=== PATIENT | female | born 1960 | race Caucasian/White ===

== ENCOUNTER 2023-06-14 08:38 | Outpatient (OUT) | payer OTHER, SELFPAY ==
[2023-06-14 09:47] LABS: Alanine Aminotransferase 23 U/L (14-59); Albumin Globulin Ratio 1.1; Albumin Level 3.7 g/dL (3.4-5.0); Alkaline Phosphatase 76 U/L (46-116); Anion Gap 8.8; Aspartate Amino Transferase 17 U/L (15-37); BUN Creatinine Ratio 25.4; Bilirubin Total 0.4 mg/dL (0.2-1.0); Calcium 8.8 mg/dL (8.5-10.1); Carbon Dioxide 30.5 mmol/L (21.0-32.0); Chloride 105 mmol/L (98-107); Chol HDL Ratio 3.6; Cholesterol 209 mg/dL (<=200); Estimated GFR (African America >60 (>=60); Estimated GFR (Non-African Ame >60 (>=60); Globulin 3.3 g/dL; Glucose 86 mg/dL (74-106); HDL Cholesterol 58 mg/dL (40-60); Potassium 4.3 mmol/L (3.5-5.1); Sodium 140 mmol/L (136-145); Triglycerides 105 mg/dL (<=150)
[2023-06-14 11:28] LABS: Basophils Absolute Auto 0.1 10^3/uL (0.0-0.1); Basophils Percent Auto 0.9 % (0.2-2.0); Eosinophils Absolute Auto 0.2 10^3/uL (0.0-0.7); Eosinophils Percent Auto 4.3 % (0.9-7.0); Hematocrit 37.5 % (36.0-48.0); Hemoglobin 12.1 g/dL (12.0-16.0); Immature Granulocytes Abs Auto 0.01 10^3/uL (0.00-0.03); Immature Granulocytes Pct Auto 0.2 % (0.0-0.5); Lymphocytes Absolute Auto 1.7 10^3/uL (1.2-3.8); Lymphocytes Percent Auto 32.3 % (20.5-60.0); Mean Corpuscular HGB Conc 32.3 g/dL (29.9-35.2); Mean Corpuscular Hemoglobin 30.1 pg (26.7-34.0); Mean Corpuscular Volume 93.3 fL (81.0-99.0); Monocytes Absolute Auto 0.3 10^3/uL (0.3-0.8); Monocytes Percent Auto 5.6 % (1.7-12.0); Neutrophils Percent Auto 56.7 % (43.0-75.0); Platelet Count 241 10^3/uL (150-450); Red Blood Count 4.02 10^6/uL (4.20-5.40); Red Cell Distribution Width 12.8 % (11.0-15.0); White Blood Count 5.3 10^3/uL (4.0-11.0)
== END 2023-06-14 08:39 | disposition home or self-care (01) ==
PROVIDERS: PCP Family Medicine; Visit Provider Family Medicine
DX: Z00.00 Encounter for general adult medical examination without abnormal findings (principal)
CPT/HCPCS: 36415; 80053; 80061; 85025

== ENCOUNTER 2023-07-08 14:24 | Outpatient (OUT) | payer OTHER, SELFPAY ==
--- OUTSIDE RECORDS SUMMARY | 2023-08-06 21:47 | XMS_ITS | CCD ---
Author Name Unknown Address [address] [place] [address] Organization [facility] Care Team Providers Care Nurse Transition Name Role Phone PHYSICIAN, DEFAULT Unavailable Unavailable PHYSICIAN, DEFAULT Unavailable Unavailable ALT-JEIMY, HATTIE Unavailable Unavailable PHYSICIAN, DEFAULT Unavailable Unavailable PHYSICIAN, DEFAULT Unavailable Unavailable ALT-JEIMY, HATTIE Unavailable Unavailable PHYSICIAN, DEFAULT Unavailable Unavailable PHYSICIAN, DEFAULT Unavailable Unavailable ALT-JEIMY, HATTIE Unavailable Unavailable KARASIK, DR RANKIN Admitting Unavailable KARASIK, DR RANKIN Attending Unavailable KARASIK, DR RANKIN Consulting Unavailable BA, DR SHERRY Hernandez Primary Care Unavailable ZIEBER, DR JOVANNI Murdock Consulting Unavailable KARASIK, DR RANKIN Attending Unavailable KARASIK, DR RANKIN Consulting Unavailable KARASIK, DR RANKIN Admitting Unavailable BA, DR SHERRY Hernandez Primary Care Unavailable BA, DR SHERRY Hernandez Consulting Unavailable BA, DR SHERRY Hernandez Primary Care Unavailable BA, DR SHERRY Hernandez Admitting Unavailable BA, DR SHERRY Hernandez Attending Unavailable BA, DR SHERRY Hernandez Attending Unavailable BA, DR SHERRY Hernandez Primary Care Unavailable BA, DR SHERRY Hernandez Admitting Unavailable Sherry Ba Unavailable SHERRY BA Primary Care Physician [phone] Brice SALAMANCA Attending Unavailable Brice SALAMANCA Attending Unavailable Allergies Allergy Classification Reported Allergen(s) Allergy Type Date of Onset Reaction(s) Facility (1 source) No Known Medication Allergies; Translations: [No Known Medication Allergies] Propensity to adverse reactions (disorder) [facility] Repository Problems Active Problems Problem Classification Problem Date Documented Da te Episodic/Chronic Malaise and fatigue (3 sources) Fatigue; Translations: [Other fatigue] Episodic Other bone disease and musculoskeletal deformities (3 sources) Other specified disorders of bone density and structure, left thigh; Translations: [Osteopenia of left thigh] Episodic Other bone disease and musculoskeletal deformities (3 sources) Other specified disorders of bone density and structure, right thigh; Translations: [Osteopenia of right thigh] Episodic Other bone disease and musculoskeletal deformities (1 source) Osteopenia 06-17-2023 Episodic Other screening for suspected conditions (not mental disorders or infectious disease) (8 sources) Encounter for screening mammogram for malignant neoplasm of breast; Translations: [Encounter for screening for malignant neoplasm of cervix] Onset: 05-30-2021 Episodic Residual codes; unclassified (3 sources) Asymptomatic menopausal state; Translations: [Menopause] Episodic Unclassified (1 source) Body mass index 20-24 - normal 06-26-2023 Unclassified (1 source) Patient encounter status 06-17-2023 Past or Other Problems Problem Classification Problem Date Documented Da te Episodic/Chronic Immunizations and screening for infectious disease (1 source) Encounter for screening for human papillomavirus (HPV); Translations: [ENC SCREENING HUMAN PAPILLOMAVIRUS] Onset: 06-04-2021 Episodic Other bone disease and musculoskeletal deformities (1 source) Other specified disorders of bone density and structure, unspecified site; Translations: [OTH D/O BONE DEN STRUCT UNS SITE] Onset: 07-21-2021 Episodic Residual codes; unclassified (1 source) Family history of other malignant neoplasms of lymphoid, hematopoietic and related tissues; Translations: [FAM HX OTH MAL YAHIR LYMPH HEMATPOETC] Onset: 07-21-2021 Episodic Results Test Name Value Interpretation Reference Range Facil ity Outside Colonoscopyon 2022 Outside Colonoscopy [id number]#1.00TIFF Normal [facility] Outside Colonoscopy [id number] Normal [facility] Outside Colonoscopyon 2022 Outside Colonoscopy [id number]#1.00TIFF Normal [facility] Comment on above: Other Comment: corre cted report to be filed crr Pathology Noteon 07-26-2023 Pathology Note [id number]. 00TIFF Normal [facility] Reminderson 07-26-2023 Reminders - From: Kasie Valadez LPN To: [facility] - Clinical; Sent: 07/26/2023 14:44:05 EST Show up: 06/16/2026 07:00:00 EDT Subject: colonoscopy recall Due Date/Time: 07/17/2026 07:00:00 EST Reminder/Recall Patient due for surveillance colonoscopy 07/17/2026 due to tubular adenoma. Normal [facility] Reminders - From: Kasie Valadez LPN To: [facility] - Clinical; Sent: 07/18/2023 11:03:37 EST Show up: 06/16/2033 07:00:00 EDT Subject: colonoscopy recall Due Date/Time: 07/17/2033 07:00:00 EST Reminder/Recall Patient due for screening colonoscopy 07/17/2033. Normal [facility] Comment on above: Other Comment: Recal l is not correct. Will place corrected recall. Consent for Procedure/Surger yon 06-27-2023 Consent for Procedure/Surgery [id number] Normal [facility] Ambulatory Visit Summaryon 1 08-26-2022 Ambulatory Visit Summary LENO NOLAN :1960 Visit Date:06/26/2023 Ambulatory Visit Instructions Your Diagnosis Screening for malignant neoplasm of colon Your Care Team Attending Physician - KIERAN LIU, Brcie Murdock Primary Care Physician - MEJIA LIU, SHERRY Procedures Performed Colonoscopy, Repair of right inguinal hernia. Discharge Vitals Heart Rate (Peripheral) 70 Respiratory Rate 16 Blood Pressure 112/60 Height 167 cm Height 66 in Weight 68.9 kg Weight 151.58 lb BMI 24.71 Medications and Immunizations Administered Not Given influenza virus vaccine, inactivated, Patient Refuses Allergies No Known Allergies No Known Medication Allergies Problems Ongoing - Any problem that you are currently receiving treatment for. BMI 24.0-24.9, adult Osteopenia Screening for malignant neoplasm of colon Patient Survey You may receive a survey via text or e-mail asking about your office visit. Please share your experience with us by completing your survey. We appreciate your feedback and thank you for choosing us for your care. Normal [facility] Facesheeton 06-26-2023 Facesheet [id number] IFF Normal [facility] Physician Referralon 023 Physician Referral [id number] Normal [facility] MG MAMM SCREEN 3D AZIZA CADon 07-12-2021 MG MAMM SCREEN 3D AZIZA CAD Patient: LENO NOLAN Exam Date: 07/12/2021 : 1960 Gender:F Ordering : DR CHUCHO BELL . Admission #: [id number] Family : Order #: [id number] CLICK HERE TO VIEW EXAM RADIOLOGY REPORT PROCEDURE: MAMMOGRAM SCREENING 3D BILATERAL CAD COMPARISON: MG MAMM SCREEN AZIZA W CAD, 03/25/2020. MG MAMM SCREEN AZIZA W CAD, 06/25/2017. INDICATIONS: Screening for malignant neoplasm of breast Calculator Name NCI Breast Cancer Risk Assessment Tool 5 Year Breast Cancer Risk 2.20% Lifetime Breast Cancer Risk 10.40% Personal Breast Cancer No Personal Ovarian Cancer No Treatments None Family Cancers Grandmother-maternal with lymphoma cancer at age 60. LOCATION: [facility] BREAST COMPOSITION: Extremely dense, which lowers the sensitivity of mammography. FINDINGS: DIAGNOSTIC CATEGORY 1--NEGATIVE ASSESSMENT. RIGHT BREAST: No significant suspicious finding. No significant change has occurred. LEFT BREAST: No significant suspicious finding. No significant change has occurred. RECOMMENDATIONS: ROUTINE MAMMOGRAM AND CLINICAL EVALUATION IN 12 MONTHS. PLEASE NOTE: A NORMAL MAMMOGRAM DOES NOT EXCLUDE THE POSSIBILITY OF BREAST CANCER. A CLINICALLY SUSPICIOUS PALPABLE LUMP SHOULD BE BIOPSIED. Dictated by: Jovanni Henley M.D. on 07/12/2021 at 13:54 Approved by: Jovanni Henley M.D. on 07/12/2021 at 13:56 Normal [facility] XR DEXA BONE DENSITYon 07-12 XR DEXA BONE DENSITY EXAMINATION: XR DEX A BONE DENSITY, 07/12/2021 10:01 AM EST HISTORY: Gynecologic examination COMPARISON: DEXA bone densitometry 06/25/2017 TECHNIQUE: Dual-energy X-ray absorptiometry (DEXA) bone density study performed for the axial skeleton. FINDINGS: SPINE ANALYSIS: Average bone mineral density is 1.093 g/cm2. T-score (standard deviation relative to young adult mean): -0.9 . -3.4% change since prior study. HIP ANALYSIS: Lowest bone mineral density is within the right femoral trochanter, 0.580 g/cm2. T-score (standard deviation relative to young adult mean): -2.4 . -2.7% change since prior study. IMPRESSION: [employer] Classification: Osteopenia - Moderate Fracture Risk Electronically authenticated by: JOVANNI HENLEY Date: 2021-07-12 10:[address] [facility] l PAP ACOG PANEL 2: 30 to 65on 06-01-2021 . . Normal [facility] Comment on above: Result Comment: Perf ormed at: WB Performed By: #### [id number] #### [facility] [address] [place] [address] Dr. Becky Sears Age Gdln ACOG Testing 30-65 Normal [facility] Comment on above: Performed By: #### [id number] #### [facility] [address] [place] [address] Dr. Becky Sears DIAGNOSIS: Comment Normal [facility] Comment on above: Result Comment: NEGA TIVE FOR INTRAEPITHELIAL LESION OR MALIGNANCY. CELLULAR CHANGES ASSOCIATED WITH ATROPHY ARE PRESENT. Performed at: WB Performed By: #### [id number] #### [facility] [address] [place] [address] Dr. Becky Sears HPV Aptima Negative Normal Negative [facility] Comment on above: Result Comment: This nucleic acid amplification test detects fourteen high-risk HPV types (16,18,31,33,35,39,45,51,52,56,58,59,66,68) without differentiation. Performed at: =G Performed By: #### [id number] #### [facility] [address] [place] [address] Dr. Becky Sears Methodology: Comment Normal [facility] Comment on above: Result Comment: This liquid based ThinPrep(R) pap test was screened with the use of an image guided system. Performed at: WB Performed By: #### [id number] #### [facility] [address] [place] [address] Dr. Becky Sears Note: Comment Normal The [facility] Comment on above: Result Comment: The Pap smear is a screening test designed to aid in the detection of premalignant and malignant conditions of the uterine cervix. It is not a diagnostic procedure and should not be used as the sole means of detecting cervical cancer. Both false-positive and false-negative reports do occur. . Performed at: WB Performed By: #### [id number] #### [facility] [address] [place] [address] Dr. Becky Sears Performed by: Comment Normal The [facility] Comment on above: Result Comment: Becca Reina, Seat Coverer (ASCP) Performed at: WB Performed By: #### [id number] #### [facility] [address] [place] [address] Dr. Becky Sears Specimen adequacy: Comment Normal [facility] Comment on above: Result Comment: Sati sfactory for evaluation. Endocervical and/or squamous metaplastic cells (endocervical component) are present. Performed at: WB Performed By: #### [id number] #### [facility] [address] [place] [address] Dr. Becky Sears GLYCOHEMOGLOBIN A1Con 2020 ADA RECOMMENDATION ADA THERAPEUTIC TARG ET 6.0 - 7.0 ACTION SUGGESTED > 7.0 Normal [facility] Comment on above: Performed By: #### A 1C #### [facility] [address] [place] [address] Albertina Makenna Glucose [Mass/Vol] 105 mg/dL Normal The [facility] Comment on above: Performed By: #### A 1C #### [facility] [address] [place] [address] Albertina Makenna HbA1c (Bld) [Mass fraction] 5.3 % Normal <=6.0 [facility] Comment on above: Performed By: #### A 1C #### [facility] [address] [place] [address] Albertina Makenna LIPID PROFILEon 02-06-2021 CHOL-HDL RATIO NORM SEE BELOW Normal [facility] Comment on above: Result Comment: 3.3 - 4.4 LOW RISK 4.4 - 7.1 AVERAGE RISK 7.1 - 11.0 MODERATE RISK >11.0 HIGH RISK Performed By: #### L IPID #### [facility] [address], [place] [address] Albertina Makenna Cholesterol [Mass/Vol] 197 mg/dL Normal <=[address] [facility] Comment on above: Performed By: #### L IPID #### [facility] [address], [place] [address] Albertina Makenna Cholesterol in HDL [Mass/Vol] 63 mg/dL Normal [facility] Comment on above: Performed By: #### L IPID #### [facility] [address], [place] [address] Albertina Makenna Cholesterol in LDL [Mass/Vol] 118.4 mg/dL Normal [facility] Comment on above: Performed By: #### L IPID #### [facility] [address], [place] [address] Albertina Makenna Cholesterol.total/Cholestero l in HDL [Mass ratio] 3.1 {ratio} Normal [facility] Comment on above: Performed By: #### L IPID #### [facility] [address], [place] [address] Albertina Makenna HDL NORMAL > or = 60 mg/dl - LO W CARDIOVASCULAR RISK <40 mg/dl - HIGH CARDIOVASCULAR RISK Normal [facility] Comment on above: Performed By: #### L IPID #### [facility] [address], [place] [address] Albertina Makenna LDL CALC NORMAL SEE BELOW Normal The [facility] Comment on above: Result Comment: <100 mg/dl OPTIMAL 100 - 129 mg/dl NEAR OR ABOVE OPTIMAL 130 - 159 mg/dl BORDERLINE HIGH 160 - 189 mg/dl HIGH >190 mg/dl VERY HIGH Performed By: #### L IPID #### [facility] [address] [place] [address] Albertina Makenna Triglyceride [Mass/Vol] 78 mg/dL Normal <=150 T [facility] Comment on above: Performed By: #### L IPID #### [facility] [address], [place] [address] Albertina Mensah VLDL CALC 15.6 mg/dL Normal [facility] Comment on above: Performed By: #### L IPID #### [facility] [address], [place] [address] Albertina Mensah Vital Signs Date Time Vital Sign Value Performing Clinician Facility 06-26-2023 13:53-0500 Blood Pressure Location [facility] 06-26-2023 13:53-0500 Diastolic blood pressure 60 mm[Hg] [facility] 06-26-2023 13:53-0500 Heart rate 70 /min [facility] 06-26-2023 13:53-0500 Respiratory rate 16 /min [facility] 06-26-2023 13:53-0500 Systolic blood pressure 112 mm[Hg] [facility] 06-11-2023 10:00-0400 Body height 167.64 cm Sherry Ba Other [facility] Other 06-11-2023 10:00-0400 Body mass index (BMI) [Ratio] 24.05 kg/m2 Sherry Ba Other [facility] Other 06-11-2023 10:00-0400 Body weight 67.59 kg Sherry Ba Other [facility] Other 06-11-2023 10:00-0400 Diastolic blood pressure 63 mm[Hg] Sherry Ba Other [facility] Other 06-11-2023 10:00-0400 Systolic blood pressure 97 mm[Hg] Sherry Ba Other [facility] Other Encounters Encounter Date Encounter Type Care Provider Facility Start: 07-17-2023 End: 07-18-2023 ambulatory Brice SALAMANCA Facility::[id number] Start: 06-26-2023 End: 06-27-2023 ambulatory Brice Murdokc ELIASL Facility:[facility] Start: 06-26-2023 End: 06-26-2023 Patient encounter procedure Brice Murdock NILL General Surgery [facility] Start: 06-24-2023 End: 06-24-2023 ambulatory Sherry aB Other [facility] Other Start: 06-24-2023 Telephone encounter Sherry Ba [facility] Start: 06-21-2023 ambulatory Brice SALAMANCA Facility:[facility] Start: 06-13-2023 Encounter for genera l adult medical examination without abnormal findings Sherry Ba [facility] Start: 06-13-2023 Telephone encounter Sherry Ba [facility] Start: 06-13-2023 End: 06-13-2023 ambulatory Sherry Ba Other [facility] Other Start: 06-11-2023 End: 06-11-2023 ambulatory Sherry Ba Other [facility] Other Start: 06-11-2023 Encounter for genera l adult medical examination without abnormal findings Sherry Ba [facility] Start: 06-11-2023 Periodic preventive med est patient 40-64yrs Sherry Ba [facility] Start: 12-25-[address] SHERRY BA Facil ity:[facility] Start: 07-21-2021 Encounter for gynecological examination (general) (routine) without abnormal findings DR CHUCHO BELL [facility] Start: 07-12-2021 End: 07-13-[address] CHUCHO BELL Facility:[facility] Start: 07-12-2021 End: 07-13-2021 Encounter for gynecological examination (general) (routine) without abnormal findings DR CHUCHO BELL Facility:[facility] Start: 05-30-2021 End: 05-30-[address] CHUCHO BELL Facility: Start: 02-06-2021 End: 02-07-[address] SHERRY BA Facility: Start: 10-15-2017 End: 10-16-2017 Ambulatory DEFAULT PHYSICIAN Facility:[facility] Start: 09-30-2017 End: 10-01-2017 Ambulatory DEFAULT PHYSICIAN Facility:[facility] Procedures Date Procedure Procedure Detail Performing Clinician Colonoscopy Brice SALAMANCA Repair of right inguinal hernia Brice SALAMANCA Immunizations Immunization Date Immunization Notes Care Provider [place] 05-04-2022 diphtheria, tetanus toxoids and acellular pertussis vaccine, unspecified formulation Sherry Ba Other [facility] Other NEGATED: Highlighted row has not occurred!06-26-2023 influenza virus vaccine, unspecified formulation Brice SALAMANCA [facility] [place] Payers Date Payer Category Payer Unknown [id number] 2.16.84 [id number] 1960 Unknown [id number] 2.16.84 [id number] 1960 Unknown [id number] 2.16.84 [id number] 1960 Unknown [id number] 2.16.8 [id number] 1960 Unknown [id number] 2.16.8 [id number] 1960 Unknown [id number] 2.16.8 [id number] 1960 Unknown [id number] 2.16.8 [id number] 1960 Private Health Insurance [id number] 1960 Self-pay [id number] Private Health Insurance [id number] Unknown Unknown [id number] 2.16.84 [id number] Social History Date Type Detail Facility Unknown if ever smoked [facility] Other Sex Assigned At [facility] Start: 06-26-2023 Tobacco smoking status Never s moked tobacco (finding) General Surgery [facility] Tobacco smoking status Never Gener al Surgery [place] Functional Status Date Assessment Result Facility 06-26-2023 Functional Status N/A General May rgery [place] Clinical Note 06-26-2023 Note Date & Type Note Facility 06-26-2023 Note Chief Complaint consultation for colonoscopy HPI Staff 62 year old female presents on consultation from Dr. Ba for screening colonoscopy. Denies abdominal or rectal pain. No rectal bleeding or change in bowel habits. Denies nausea or vomiting. No unexplained weight loss. Last colonoscopy completed 12/2008-normal. No known family history of colon cancer. History of Present Illness 62 yo female referred for colorectal screening; denies change in bms or blood in stools; no abdominal complaints; denies asa or NSAID use, no SBE prophylaxis; abdominal operations significant for RIHR; last colonoscopy wnl; no fmhx of GI malignancy or IBD; no tobacco use. Review of Systems ROS - Provider Constitutional: no fever, no sweats, no weight loss. Eyes: no glasses, no blurred vision, no visual loss. ENMT: no dentures, no hoarseness, no swallowing difficulties, no hearing loss, no ear infection(s), no nose bleeds. Cardiovascular: normal blood pressure, no chest pain, regular heartbeat, no heart murmur. Respiratory: no shortness of breath, no cough, no asthma, no wheezing. Gastrointestinal: no nausea, no vomiting, no diarrhea, no constipation, no blood in stool, no change in bowel habits, no abdominal pain, no hepatitis. Genitourinary: no kidney stones, no urine infection, no dysuria. Musculoskeletal: no pain, no weakness. Skin: no changing moles, no rash, no skin lumps. Neurologic: no seizures, no epilepsy, no headache. Psychiatric: no emotional or psychiatric problem. Heme/Lymph: no bleeding problems, no anemia, no blood clots, no transfusions. Allergy/Immunologic: no swollen lymph nodes/glands, no IV drug abuse. Other: Additional ROS info: Except as noted in the above Review of Systems and in the History of Present Illness, all other systems have been reviewed and are negative or noncontributory. Physical Exam Vitals & Measurements HR: 70(Peripheral) RR: 16 BP: 112/60 HT: 66 in HT: 167 cm WT: 68.9 kg WT: 151.58 lb BMI: 24.71 HEENT: normal conjunctiva, sclera clear, no scleral icterus, EOM intact, PERRLA, oral mucosa moist without lesions. Neck: trachea midline, no mass, symmetric, no thyromegaly or nodules, no adenopathy Respiratory: lungs CTA, respirations non labored. Cardiovascular: regular rate and rhythm, no murmur, no pedal edema or varicosities. Gastrointestinal: soft, non distended, no tenderness, no masses, no palpable hernias, diastasis recti no, no hepatosplenomegaly; normal bs Lymphatic: no cervical adenopathy, no supraclavicular adenopathy. Musculoskeletal: normal gait, digits and nails without infection, nodes, cyanosis, clubbing. Skin: no rashes, no lesions, no ulcers, no subcutaneous nodules, induration. Psychiatric/Neuro: oriented to time, place, person, judgement normal, affect appropriate for age, insight intact, no focal deficits. Tests: , review of old records completed , Discussed surgical options, risks, and possible complications with patient. Assessment/Plan 1. Screening for malignant neoplasm of colon (Z12.11: Encounter for screening for malignant neoplasm of colon) plan colonoscopy under anesthesia, informed consent obtained. Follow-up No qualifying data available Problem List/Past Medical History Ongoing BMI 24.0-24.9, adult Osteopenia Screening for malignant neoplasm of colon Historical No qualifying data Procedure/Surgical History Colonoscopy, Repair of right inguinal hernia. Medications No active medications Allergies No Known Allergies No Known Medication Allergies Social History Alcohol - Denies Alcohol Use, 06/26/2023 Substance Abuse - Denies Substance Abuse, 06/26/2023 Tobacco Never (less than 100 in lifetime) Tobacco Use:. Never Smokeless Tobacco Use:., 06/26/2023 Family History Acute myocardial infarction: Brother. Diabetes mellitus type 2: Mother. Heart disease: Father. Immunizations Vaccine Date Status Comments influenza virus vaccine, inactivated - Not Given Patient Refuses [facility] Comment on above: Result Comment: Elec tronically Signed By: KIERAN LIU, Brice Norris\Date and Time Signed: 06/26/23 14:20 EST Evaluation note 06-13-2023 Note Date & Type Note Facility 06-13-2023 Evaluation note Encounter Date Diagnosis Assessment Notes May, Wellness examination (ICD-10 - Z00.00) [facility] Other Evaluation note 06-11-2023 Note Date & Type Note Facility 06-11-2023 Evaluation note Encounter Date Diagnosis Assessment Notes May, Well adult exam (ICD-10 - Z00.00) We have discussed the necessity of following up with PCP regularly as well as specialists, as needed. Discussed F/U with dentistry and optometry at least yearly. Discussed all preventative measures/ cancer screenings as applicable to this patient. Emphasized the importance of a reduced fat, low carb diet to promote heart health and controlled blood sugars. Reviewed social history and ensured patient is safe within the home today. Pt denies any abuse of alcohol, nicotine, caffeine or recreational drugs. I have ensured patient is of stable mental and physical health today. We have discussed appropriate F/U schedule as well as blood work and vaccinations that apply. All questions answered and patient is sent home pleased, without concerns. May, Screening for colon cancer (ICD-10 - Z12.11) May, Screening mammogram for breast cancer (ICD-10 - Z12.31) [employer] [facility] Other Evaluation + Plan note Note Date & Type Note Facility Evaluation + Plan note No data available for this section General Surgery [facility] Evaluation note Note Date & Type Note Facility Evaluation note No Information [employer] Other History general Narrative - Reported Note Date & Type Note Facility History general Narrative - Reported Type Medical History Osteopenia of right thigh Medical History Osteopenia of left thigh Medical History Fatigue Medical History Menopause Surgical History Inguinal Hernia Repair Hospitalization History SEE SURGICAL HX [facility] Other Hospital Discharge instructions Note Date & Type Note Facility Hospital Discharge instructions No data available for this section General Surgery [place] Progress note Note Date & Type Note Facility Progress note No data available for this section General Surgery [place] Summary Purpose Family History No Family History Records FoundNo Family History Records Found No data available for this section No Family History Records Found Advance Directives No Advanced Directives Records FoundNo Advanced Directives Records FoundNo Advanced Directives Records Found Reason for Referral Reason *FU 06/18 screenin g colonoscopy Diagnosis 1 Screening for colon cancer (Z12.11) [facility]erral [facility] Referring Provider First Name Sherry Referring Provider Last Name Mejia Referring Provider Specialty Family [facility] Referred Organization [facility] Referred Provider Brice Salamanca Referred Address [address], [place],[address] Referred Provider Specialty General Surg kp Referral Priority Routine General Notes Valorie Sullivan 03:34:07 PM >received today, note locked, referral faxed Additional Source Comments INFORMATION SOURCE (unrecogn ized section and content) DATE CREATED AUTHOR 02/07/2018 [facility] DATE CREATED AUTHOR AUTHOR'S ORGANIZ ATION 01/04/2022 [facility] DATE CREATED AUTHOR AUTHOR'S ORGANIZ ATION 08/02/2023 [facility] REASON FOR VISIT (unrecogniz ed section and content) [facility] Patient Care team informatio n (unrecognized section and content) Personnel Name: SHERRY BA MD Address: Address: [address], [place] [address] FOR RECORDS PERTAINING TO PATIENTS WHO ARE OR HAVE BEEN ENROLLED IN A CHEMICAL DEPENDENCY/SUBSTANCEABUSE PROGRAM, SOME INFORMATION MAY BE OMITTED. This clinical summary was aggregated from multiple sources. Caution should be exercised in using it in the provision of clinical care. This summary normalizes information from multiple sources, and as a consequence, information in this document may materially change the coding, format and clinical context of patient data. In addition, data may be omitted in some cases. CLINICAL DECISIONS SHOULD BE BASED ON THE PRIMARY CLINICAL RECORDS. [facility] [employer] [facility]. provides no warranty or guarantee of the accuracy or completeness of information in this document.
== END 2023-07-08 14:25 | disposition home or self-care (01) ==
LOC: PST 14:24
PROVIDERS: PCP Family Medicine; Visit Provider Surgery
DX: Z01.818 Encounter for other preprocedural examination (principal); Z12.11 Encounter for screening for malignant neoplasm of colon

== ENCOUNTER 2023-07-17 07:30 | Day surgery (SDC) | payer OTHER, SELFPAY ==
--- NOTE | 2023-07-17 | OP_ITS ---
OPERATION DATE: ??07/17/2023 PREOPERATIVE DIAGNOSIS:? Colorectal screening. POSTOPERATIVE DIAGNOSIS:? Normal colonoscopy to cecum. PROCEDURE:? Colonoscopy to cecum. SURGEON:? Brice Salamanca M.D. ANESTHESIA:? Monitored anesthesia care. ESTIMATED BLOOD LOSS:? Zero. INDICATIONS AND CONSENT:? Patient is a 44-year-old male presents for colorectal screening.? Indications, risks, benefits, alternatives of proceeding with colonoscopy were explained extensively to the patient, including the risks of bleeding, colon perforation or anesthetic complications.? All of his questions were answered.? Informed consent was obtained. PROCEDURE:? Patient brought to the operating room, placed in the left lateral decubitus position.? Monitored anesthesia care was provided.? Rectal exam was performed which showed no masses or blood.? The scope was inserted into the anal canal.? Under direct visualization was advanced.? With the aid of abdominal compression, it was advanced to the cecum where cecal markings were clearly identified.? There was noted to be a good prep.? Upon withdrawal of the scope, mucosal surfaces were carefully examined.? There were no mass lesions or polyps.? No inflammatory changes or ulcerations.? No significant diverticulosis.? The scope was retroflexed in the anal canal.? There was no significant hemorrhoidal disease.? Scope was then withdrawn.? Patient tolerated procedure well, was sent to recovery room in good condition. f/u screening colonoscopy in 10 years CC:? Sherry Sawyer M.D. [facility]
--- NOTE | 2023-07-17 07:35 | OP_ITS ---
OP Note ? OPERATION DATE: ??07/17/2023 ? PREOPERATIVE DIAGNOSIS:? Colorectal screening. ? POSTOPERATIVE DIAGNOSIS:? Descending colon polyp and sigmoid colon polyp. ? PROCEDURE:? Colonoscopy to cecum with cold snare polypectomy x1 for sigmoid polyp, as well as cold biopsy forceps polypectomy x1 for descending colon polyp. ? SURGEON:? Brice Salamanca M.D. ? ANESTHESIA:? Monitored anesthesia care. ? ESTIMATED BLOOD LOSS:? Less than 1 mL. ? INDICATIONS AND CONSENT:? Patient is a 62-year-old female, who presents for colorectal screening.? Indications, risks, benefits, alternatives of proceeding with colonoscopy were explained extensively to the patient, including the risks of bleeding, colon perforation or anesthetic complications.? All of her questions were answered.? Informed consent was obtained. ? PROCEDURE:? Patient brought to the operating room, placed in the left lateral decubitus position.? Monitored anesthesia care was provided.? Rectal exam was performed which showed no masses or blood.? The scope was inserted into the anal canal.? Under direct visualization was advanced.? It was advanced to the cecum where cecal markings were clearly identified.? There was noted to be a good prep.? Upon withdrawal of the scope, mucosal surfaces were carefully examined.? There were no mass lesions or inflammatory changes.? There was mild sigmoid diverticulosis.? Within the sigmoid, there was noted to be a 7 mm, sessile polyp that was removed with cold snare with good hemostasis.? Within the descending colon, there was noted to be a 3 mm sessile polyp that was removed with cold biopsy forceps with good hemostasis.? The scope was retroflexed in the anal canal.? There was no significant hemorrhoidal disease.? The scope was then withdrawn.? Patient tolerated procedure well, was sent to recovery room in good condition. ? Follow up colonoscopy should be in three years for surveillance. ? CC:? Sherry Sawyer M.D. ? [facility]
[2023-07-17 07:43] VITALS: BP 123/78; PULSE 95; RESP 18; TEMP 36.1; O2SAT 98; BMI 23.3
[2023-07-17] MEDS: LACTATED RINGER'S SOLUTION 1,000 ML 50 ML IV (07:52)
[2023-07-17 09:20] VITALS: BP 103/55; PULSE 61; RESP 16; O2SAT 100
[2023-07-17 09:40] VITALS: BP 116/78; PULSE 76; RESP 14; O2SAT 95
== END 2023-07-17 09:54 | disposition home or self-care (01) ==
PROVIDERS: PCP Family Medicine; Visit Provider Surgery
PROC: (CPT 812; principal; 2023-07-17 08:35)
DX: Z12.11 Encounter for screening for malignant neoplasm of colon (principal); D12.4 Benign neoplasm of descending colon; D12.5 Benign neoplasm of sigmoid colon; M85.80 Other specified disorders of bone density and structure, unspecified site; K57.30 Diverticulosis of large intestine without perforation or abscess without bleeding
CPT/HCPCS: 44394; 45380; 88305; J2704

== ENCOUNTER 2024-05-02 20:55 | Emergency (ER) | payer OTHER, SELFPAY ==
--- OUTSIDE RECORDS SUMMARY | 2024-05-02 21:00 | XMS_ITS | CCD ---
Author Organization [facility] Care Team Providers Care Polysomnographic Technologist Name Role Phone PHYSICIAN, DEFAULT Unavailable Unavailable [...] Unavailable BA, DR SHERRY Hernandez Admitting Unavailable Ba, Sherry Unavailable BA, SHERRY Primary Care Physician [phone] Brice SALAMANCA Attending Unavailable NILL, Brice Murdock Attending Unavailable Allergies Allergy Classification Reported Allergen(s) Allergy Type Date of Onset Reaction(s) Facility (1 source) No Known Medication Allergies; Translations: [No Known Medication Allergies] Propensity to adverse reactions (disorder) [facility] Repository Problems Active Problems Problem Classification [...] Results Test Name Value Interpretation Reference Range Facility Outside Colonoscopyon 2022 Outside Colonoscopy [id number] 20 [id number]#1.0 0TIFF Normal [facility] Outside Colonoscopy [id number] 20 [id number]#1.0 0TIFF Normal [facility] Outside Colonoscopyon 2022 Outside Colonoscopy [id number] 10 [id number]#1.0 0TIFF Normal [facility] Comment on above: Other Comment: corre cted report to be filed crr Pathology Noteon 07-26-2023 Pathology Note [id number] 20 [id number]#1.0 0TIFF Normal [facility] Reminderson 07-26-2023 Reminders - From: Kasie Valadez LPN: [facility] - Clinical; Sent: 07/26/2023 14:44:05 EST Show up: 06/16/2026 07:00:00 EDT Subject: colonoscopy recall Due Date/Time: 07/17/2026 07:00:00 EST Reminder/Recall Patient due for surveillance colonoscopy 07/17/2026 due to tubular adenoma. [facility] Reminders - From: Kasie Valadez LPN To: [facility] - Clinical; Sent: 07/18/2023 11:03:37 EST Show up: 06/16/2033 07:00:00 EDT Subject: colonoscopy recall Due Date/Time: 07/17/2033 07:00:00 EST Reminder/Recall Patient due for screening colonoscopy 07/17/2033. [facility] Comment on above: Other Comment: Recal l is not correct. Will place corrected recall. Consent for Procedure/Surger yon 06-27-2023 Consent for Procedure/Surgery [id number]#1.0 0TIFF [facility] Ambulatory Visit Summaryon 1 08-26-2022 Ambulatory Visit Summary LENO NOLAN :1960 Visit Date:06/26/2023 Ambulatory Visit Instructions Your Diagnosis Screening for malignant neoplasm of colon Your Care Team Attending Physician - KIERAN LIU, Brice Murdock Primary Care Physician - SHERRY BA MD Procedures Performed Colonoscopy, Repair of right inguinal [...] you for choosing us for your care. [facility] Facesheeton 06-26-2023 Facesheet [id number] 03 [id number]. 00TIFF Normal [facility] Physician Referralon 023 Physician Referral [id number]#1.00 TIFF Normal [facility] MG MAMM SCREEN 3D AZIZA CADon 07-12-2021 MG MAMM SCREEN 3D AZIZA CAD Patient: LENO NOLAN Exam Date: 07/12/2021 : 1960 Gender:F Ordering : DR CHUCHO BELL . Admission #: [id number] Family : Order #: [id number] CLICK HERE TO VIEW EXAM RADIOLOGY REPORT [...] lymphoma cancer at age 59. LOCATION: [facility] BREAST COMPOSITION: Extremely dense, which lowers the [...] Henley M.D. on 07/12/2021 at 13:56 Normal [facility] XR DEXA BONE DENSITYon 07-12 XR [...] by: JOVANNI HENLEY Date: 2021-07-12 10:41 Normal [facility] PAP ACOG PANEL 2: 30 to 65on 06-01-2021 . . Normal [facility] Comment on above: Result Comment: Perf ormed at: WB Performed By: #### [id number] #### [facility] [address] [place] [address] Dr. Becky Sears Age Gdln ACOG Testing 30-65 Normal [facility] Comment on above: Performed By: #### [id number] #### [facility] [address] [address] [address] Becky Sears DIAGNOSIS: Comment Normal [facility] Comment on above: Result Comment: NEGA TIVE FOR INTRAEPITHELIAL LESION OR MALIGNANCY. CELLULAR CHANGES ASSOCIATED WITH ATROPHY ARE PRESENT. Performed at: WB Performed By: #### [id number] #### [facility] [address] [place] [address] Dr. Becky Sears HPV Aptima Negative Normal Negative [facility] Comment on above: Result Comment: This nucleic acid amplification test detects fourteen high-risk HPV types (16,18,31,33,35,39,45,51,52,56,58,59,66,68) without differentiation. Performed at: =G Performed By: #### [id number] #### [facility] [address] [address] [address] Becky Sears Methodology: Comment Normal [facility] Comment on above: Result Comment: This liquid based ThinPrep(R) pap test was screened with the use of an image guided system. Performed at: WB Performed By: #### [id number] #### [facility] [address] [place] [address] Dr. Becky Sears Note: Comment Normal [facility] Comment on above: Result Comment: The Pap smear is a screening test designed to aid in the detection of premalignant and malignant conditions of the uterine cervix. It is not a diagnostic procedure and should not be used as the sole means of detecting cervical cancer. Both false-positive and false-negative reports do occur. . Performed at: WB Performed By: #### [id number] #### [facility] [address] [address] [address] Becky Sears Performed by: Comment Normal [facility] Comment on above: Result Comment: Becca Reina, Yarding Supervisor (ASCP) Performed at: WB Performed By: #### [id number] #### [facility] [address] [place] [address] Dr. Becky Sears Specimen adequacy: Comment Normal [facility] Comment on above: Result Comment: Sati sfactory for evaluation. Endocervical and/or squamous metaplastic cells (endocervical component) are present. Performed at: WB Performed By: #### 4 [id number] #### [facility] [address] [place] [address] Dr. Becky Sears GLYCOHEMOGLOBIN A1Con 2020 ADA RECOMMENDATION ADA THERAPEUTIC TARG ET 6.0 - 7.0 ACTION SUGGESTED > 7.0 Normal [facility] Comment on above: Performed By: #### A 1C #### [facility] [address] [place] [address] Albertina Makenna Glucose [Mass/Vol] 105 mg/dL Normal [facility] Comment on above: Performed By: #### A 1C #### [facility] [address] [place] [address] Albertina Makenna HbA1c (Bld) [Mass fraction] 5.3 % Normal <=6.0 [facility] Comment on above: Performed By: #### A 1C #### [facility] [address] [place] [address] Albertina Makenna LIPID PROFILEon 02-06-2021 CHOL-HDL RATIO NORM SEE BELOW Normal [facility] Comment on above: Result Comment: 3.3 - 4.4 LOW RISK 4.4 - 7.1 AVERAGE RISK 7.1 - 11.0 MODERATE RISK >11.0 HIGH RISK Performed By: #### L IPID #### [facility] [address], [place] [address] Albertina Makenna Cholesterol [Mass/Vol] 197 mg/dL Normal <=200 [facility] Comment on above: Performed By: #### L IPID #### [facility] [address], [place] [address] Albertina Makenna Cholesterol in HDL [Mass/Vol] 63 mg/dL Normal [facility] Comment on above: Performed By: #### L IPID #### [facility] [address] [id number] Albertina Makenna Cholesterol in LDL [Mass/Vol] 118.4 mg/dL Normal [facility] Comment on above: Performed By: #### L IPID #### [facility] [address] [id number] Albertina Makenna Cholesterol.total/Cho lesterol in HDL [Mass ratio] 3.1 {ratio} Normal [facility] Comment on above: Performed By: #### L IPID #### [facility] [address] [place], [place] [id number] Albretina Makenna HDL NORMAL > or = 60 mg/dl - LO W CARDIOVASCULAR RISK <40 mg/dl - HIGH CARDIOVASCULAR RISK Normal [facility] Comment on above: Performed By: #### L IPID #### [facility] [address] [id number] Albertina Makenna LDL CALC NORMAL SEE BELOW Normal [facility] Comment on above: Result Comment: <100 mg/dl OPTIMAL 100 - 129 mg/dl NEAR OR ABOVE OPTIMAL 130 - 159 mg/dl BORDERLINE HIGH 160 - 189 mg/dl HIGH >190 mg/dl VERY HIGH Performed By: #### L IPID #### [facility] [address], [place] [address] Albertina Makenna Triglyceride [Mass/Vol] 78 mg/dL Normal <=150 [facility] Comment on above: Performed By: #### L IPID #### [facility] [address], [place] [address] Albertina Mensah VLDL CALC 15.6 mg/dL Normal [facility] Comment on above: Performed By: #### L IPID #### [facility] [address], [place] [address] Albertina Mensah Vital Signs Date Time Vital Sign Value Performing Clinician Facility 06-26-2023 13:53-0500 Blood Pressure Location [facility] [place] 06-26-2023 13:53-0500 Diastolic blood pressure 60 mm[Hg] [employer] [facility] 06-26-2023 13:53-0500 Heart rate 70 /min [facility] [place] 06-26-2023 13:53-0500 Respiratory rate 16 /min [facility] 06-26-2023 13:53-0500 Systolic blood pressure 112 mm[Hg] [employer] [facility] 06-11-2023 10:00-0400 Body height 167.64 cm Sherry Ba Other [facility] Other 06-11-2023 10:00-0400 Body mass index (BMI) [Ratio] 24.05 kg/m2 Sherry Ba Other [facility] Other 06-11-2023 10:00-0400 Body weight 67.59 kg Sherry Ba Other [facility] Other 06-11-2023 10:00-0400 Diastolic blood pressure 63 mm[Hg] Sherry Ba Other [facility] Other 06-11-2023 10:00-0400 Systolic blood pressure 97 mm[Hg] Sherry Ba Other [facility] Other Encounters Encounter Date Encounter Type Care Provider Facility Start: 07-17-2023 End: 07-18-2023 ambulatory Brice SALAMANCA Facility::[id number] Start: 06-26-2023 End: 06-27-2023 ambulatory Brice GRIFFINL Facility:[facility] Start: 06-26-2023 End: 06-26-2023 Patient encounter procedure Brice SALAMANCA General Surgery [facility] Start: 06-24-2023 End: 06-24-2023 ambulatory Sherry Ba Other [facility] Other Start: 06-24-2023 Telephone encounter Sherry Ba [facility] Start: 06-21-2023 ambulatory Brice ELIASDoris Facility:[facility] Start: 06-13-2023 Encounter for genera l adult medical examination without abnormal findings Sherry Ba [facility] Start: 06-13-2023 Telephone encounter Sherry Ba [facility] Start: 06-13-2023 End: 06-13-2023 ambulatory Sherry Ba Other [facility] Other Start: 06-11-2023 End: 06-11-2023 ambulatory Sherry Ba Other [facility] Other Start: 06-11-2023 Encounter for genera l adult medical examination without abnormal findings Sherry Ba [facility] Start: 06-11-2023 Periodic preventive med est patient 40-64yrs Sherry Ba [facility] Start: 12-25-[address] SHERRY BA [facility] ity:[facility]1 Start: 07-21-2021 Encounter for gynecological examination (general) (routine) without abnormal findings DR CHUCHO BELL [facility] Start: 07-12-2021 End: 07-13-[address] CHUCHO BELL Facility:[facility] Start: 07-12-2021 End: 07-13-2021 Encounter for gynecological examination (general) (routine) without abnormal findings DR CHUCHO BELL Facility:[facility] Start: 05-30-2021 End: 05-30-[address] CHUCHO BELL Facility:[facility] Start: 02-06-2021 End: 02-07-[address] SHERRY BA Facility: Start: 10-15-2017 End: 10-16-2017 Ambulatory DEFAULT PHYSICIAN Facility:[facility] Start: 09-30-2017 End: 10-01-2017 Ambulatory DEFAULT PHYSICIAN Facility:[facility] Procedures Date Procedure Procedure Detail Performing Clinician Colonoscopy Brice SALAMANCA Repair of right inguinal hernia Brice SALAMANCA Immunizations Immunization Date Immunization Notes Care Provider Fa [facility] 05-04-2022 diphtheria, tetanus toxoids and acellular pertussis vaccine, unspecified formulation Sherry Ba Other [facility] Other NEGATED: Highlighted row has not occurred!06-26-2023 influenza virus vaccine, unspecified formulation Brice SALAMANCA [facility] [place] Payers Date Payer Category Payer Unknown [id number] 2.16.84 [id number] 1960 Unknown [id number] 2.16.84 [id number] 1960 Unknown [id number] 2.16.84 [id number] 1960 Unknown [id number] 2.16.8 [id number] 1960 Unknown [id number] 2.16.8 [id number] 1960 Unknown [id number] 2.16.8 [id number] 1960 Unknown [id number] 2.16.8 [id number] 1960 Private Health Insurance [id number] 1960 Self-pay [id number] Private Health Insurance [id number] Unknown Unknown [id number] 2.16.84 [id number] Social History Date Type Detail Facility Unknown if ever smoked [facility] Other Sex Assigned At [facility] Start: 06-26-2023 Tobacco smoking status Never s moked tobacco (finding) [facility] [place] Tobacco smoking status Never Gener al [facility] [place] Functional Status Date Assessment Result Facility 06-26-2023 Functional Status N/A General May rgery [place] Clinical Note 06-26-2023 Note Date & Type [...] abdominal operations significant for RIHR; last colonoscopy 2008, wnl; no fmhx of GI malignancy or [...] vaccine, inactivated - Not Given Patient Refuses [facility] Comment on above: Result Comment: Elec tronically Signed By: KIERAN LIU, Brice Norris\Date and Time Signed: 06/26/23 14:20 EST Evaluation note 06-13-2023 Note Date & Type Note Facility 06-13-2023 Evaluation note Encounter Date Diagnosis Assessment Notes May, Wellness examination (ICD-10 - Z00.00) [facility] Other Evaluation note 06-11-2023 Note Date & [...] mammogram for breast cancer (ICD-10 - Z12.31) [facility] Other Evaluation + Plan note Note Date & Type Note Facility Evaluation + Plan note No data available for this section General [facility] [place] Evaluation note Note Date & Type Note Facility Evaluation note No Information [employer] Other History general Narrative - Reported Note Date & Type Note Facility History general Narrative - Reported Type Medical History Osteopenia of right thigh Medical History Osteopenia of left thigh Medical History Fatigue Medical History Menopause Surgical History Inguinal Hernia Repair Hospitalization History SEE SURGICAL HX [facility] Other Hospital Discharge instructions Note Date & Type Note Facility Hospital Discharge instructions No data available for this section General Surgery [place] Progress note Note Date & Type Note Facility Progress note No data available for this section General [facility] [place] Summary Purpose Family History No Family History Records FoundNo Family History Records Found No data available for this section No Family History Records Found Advance Directives No Advanced Directives Records FoundNo Advanced Directives Records FoundNo Advanced Directives Records Found Reason for Referral Reason *FU 06/18 screenin g colonoscopy Diagnosis 1 Screening for colon cancer (Z12.11) Referral Organization [facility] [place] [facility] Referring Provider First Name Sherry Referring Provider Last Name Silverio Referring Provider Specialty Family Medi cine Referred Organization [facility] Referred Provider Brice Salamanca Referred Address [address] [place], [place],[address] Referred Provider Specialty General Surg kp Referral Priority Routine General Notes Valorie Sullivan 03:34:07 PM >received today, note locked, referral faxed Additional Source Comments INFORMATION SOURCE (unrecogn ized section and content) DATE CREATED AUTHOR 02/07/2018 [facility] DATE CREATED AUTHOR AUTHOR'S ORGANIZ ATION 01/04/2022 [facility] DATE CREATED AUTHOR AUTHOR'S ORGANIZ ATION 08/02/2023 [facility] REASON FOR VISIT (unrecogniz ed section and content) [facility] Patient Care team informatio n (unrecognized section and content) Personnel Name: SHERRY BA MD Address: Address: [address] [place], [place] [address] FOR RECORDS PERTAINING TO PATIENTS [...] BE BASED ON THE PRIMARY CLINICAL RECORDS. [facility] [employer] provides no warranty or guarantee of the accuracy or completeness of information in this document.
[2024-05-02 21:03] VITALS: BP 157/86; PULSE 83; TEMP 36.8; O2SAT 99; BMI 24.2
[2024-05-02] MEDS: LIDOCAINE HCL 1% 100 MG/10 ML MDV INJ (23:05)
--- NOTE | 2024-05-02 23:14 | ED.GENADUL1 ---
HPI HPI - General Adult General Chief complaint: Skin/Abscess/Foreign Body Stated complaint: Laceration Time Seen by Provider: 05/02/24 22:53 Source: patient Mode of arrival: walk-in History of Present Illness HPI narrative: 63-year-old female presents for laceration to her left hand. This was sustained when she accidentally cut herself on scissors shortly before coming into the emergency department. She had a tetanus shot a few years ago. No other wounds were sustained. No weakness or numbness. Related Data Home Medications ?Medication ?Instructions ?Recorded ?Confirmed No Known Home Medications 07/08/23 07/08/23 Allergies Allergy/AdvReac Type Severity Reaction Status Date / Time No Known Drug Allergies Allergy Verified 07/17/23 07:41 Opioid HPI Opioid Management Most Recent Opioid Data: No Data to Display Review of Systems ROS Narrative A ten point review of systems is negative except as noted above. [facility] Medical History (Updated 05/02/24 @ 23:14 by Roberto Doyle MD) Osteopenia ?M85.80 - Other specified disorders of bone density and structure, unspecified site (ICD-10) Surgical History (Updated 07/08/23 @ 08:43 by Sara Starr, YUVAL) H/O inguinal hernia repair ?Z98.890 - Other specified postprocedural states (ICD-10) ?Z87.19 - Personal history of other diseases of the digestive system (ICD-10) History of colonoscopy ?Z98.890 - Other specified postprocedural states (ICD-10) Family History (Updated 07/08/23 @ 08:44 by Sara Starr, RN) Other Family history of diabetes mellitus Family history of myocardial infarction Heart disease Social History (Updated 07/08/23 @ 13:50 by Becca Velarde RN) Smoking status: Never smoker Second hand tobacco smoke exposure: No Non-prescribed substance use: denies use Previous occupational history: none Known occupational exposures/hazards: No Highest level of school completed/degree received: some college, no degree Exam Narrative Exam Narrative: Nurses note and vital signs reviewed and patient is not hypoxic. General: The patient appears well and in no apparent distress. Patient is resting comfortably on cart. Skin: Warm, dry, no pallor noted. There is no rash noted. Head: Normocephalic, atraumatic Eye: Normal conjunctiva, no drainage Ears, Nose, Mouth, and Throat: oral mucosa is moist. Nares patent. Cardiovascular: Regular Rate and Rhythm Respiratory: Patient is in no distress, no accessory muscle use GI: Soft and nontender Musculoskeletal: There is a 1 cm laceration on the left hand proximal to the left thumb on the extensor side. Fingers all have full range of motion. No active bleeding or foreign bodies present. Neurological: Awake and alert Psychiatric: Cooperative Constitutional Vital Signs, click to edit/add: Last Vital Signs Temp 98.3 F 05/02/24 21:03 Pulse 83 05/02/24 21:03 Resp 16 05/02/24 21:03 BP 157/86 H 05/02/24 21:03 Pulse Ox 99 05/02/24 21:03 O2 Del Method Room Air 05/02/24 21:03 Course Vital Signs Vital signs: Vital Signs Temperature 98.3 F 05/02/24 21:03 Pulse Rate 83 05/02/24 21:03 Respiratory Rate 16 05/02/24 21:03 Blood Pressure 157/86 H 05/02/24 21:03 Pulse Oximetry 99 05/02/24 21:03 Oxygen Delivery Method Room Air 05/02/24 21:03 Temperature 98.3 F 05/02/24 21:03 Pulse Rate 83 05/02/24 21:03 Respiratory Rate 16 05/02/24 21:03 Blood Pressure 157/86 H 05/02/24 21:03 Pulse Oximetry 99 05/02/24 21:03 Oxygen Delivery Method Room Air 05/02/24 21:03 Medical Decision Making MDM Narrative Medical decision making narrative: The following procedure was performed by me. Local infiltration was carried out with 1% lidocaine without epinephrine resulting in complete skin anesthesia. The area was prepped with Betadine x 3 and draped sterilely and explored for foreign bodies number found. The wound was then closed with two 5-0 Ethilon sutures resulting in good skin reapproximation and no complications. Sutures to be removed in a week to 10 days. Tetanus is already up-to-date. Treatment diagnosis and follow-up were discussed with the patient. Differential Diagnosis Differential Diagnosis: Laceration Discharge Plan Discharge Chief Complaint: Skin/Abscess/Foreign Body Clinical Impression: Laceration of left hand Patient Disposition: Home, Self-Care Time of Disposition Decision: 23:13 Condition: Good Mode of Transportation: Private Vehicle Prescriptions / Home Meds: No Action No Known Home Medications Print Language: Cook Islander Instructions: Laceration (ED) Additional Instructions: Sutures to be removed in a week to 10 days Referrals: Sherry Sawyer MD [Primary Care Provider] - 1 week
== END 2024-05-02 23:25 | disposition home or self-care (01) ==
PROVIDERS: Emergency Provider Emergency Medicine; PCP Family Medicine
DX: S61.412A Laceration without foreign body of left hand, initial encounter (principal); W26.8XXA Contact with other sharp object(s), not elsewhere classified, initial encounter
CPT/HCPCS: 12001; 99284

== ENCOUNTER 2024-06-16 08:32 | Outpatient (OUT) | payer OTHER, SELFPAY ==
--- OUTSIDE RECORDS SUMMARY | 2024-06-16 08:37 | XMS_ITS | CCD ---
Author Organization [facility] Care Team Providers Care Knit Tubing Dyer Name Role Phone PHYSICIAN, DEFAULT Unavailable Unavailable [...] Sherry Unavailable BA, SHERRY Primary Care Physician [phone] Brice ALCARAZ Attending Unavailable KIERAN, Brice Murdock Attending Unavailable Allergies Allergy Classification Reported Allergen(s) Allergy Type Date of Onset Reaction(s) Facility (1 source) No Known Medication Allergies; Translations: [No Known Medication Allergies] Propensity to adverse reactions (disorder) [facility] Repository Problems Active Problems Problem Classification Problem [...] conditions (not mental disorders or infectious disease) (10 sources) Encounter for screening mammogram for malignant [...] Range Facility Outside Colonoscopyon 2022 Outside Colonoscopy [id number] 20 [id number]#1.0 0TIFF Normal [facility] Outside Colonoscopy [id number] 20 [id number]#1.0 0TIFF Normal [facility] Outside Colonoscopyon 2022 Outside Colonoscopy [id number]#1.0 0TIFF Normal [facility] Comment on above: Other Comment: corre cted report to be filed crr Pathology Noteon 07-26-2023 Pathology Note [id number]#1.0 0TIFF Normal [facility] Reminderson 07-26-2023 Reminders - From: Kasie Valadez LPN To: [facility] - Clinical; Sent: 07/26/2023 14:44:05 EST Show up: 06/16/2026 07:00:00 EDT Subject: colonoscopy recall Due Date/Time: 07/17/2026 07:00:00 EST Reminder/Recall Patient due for surveillance colonoscopy 07/17/2026 due to tubular adenoma. [facility] Reminders - From: Kasie Valadez LPN To: [facility] - Clinical; Sent: 07/18/2023 11:03:37 EST Show up: 06/16/2033 07:00:00 EDT Subject: colonoscopy recall Due Date/Time: 07/17/2033 07:00:00 EST Reminder/Recall Patient due for screening colonoscopy 07/17/2033. [facility] Comment on above: Other Comment: Recal l is not correct. Will place corrected recall. Consent for Procedure/Surger yon 06-27-2023 Consent for Procedure/Surgery [id number]#1.0 0TIFF [facility] Ambulatory Visit Summaryon 1 08-26-2022 Ambulatory Visit Summary MARTI NOLAN :1960 Visit Date:06/26/2023 Ambulatory Visit Instructions [...] you for choosing us for your care. [facility] Facesheeton 06-26-2023 Facesheet [id number]. 00TIFF Normal [facility] Physician Referralon 023 Physician Referral [id number] TIFF Normal [facility] MG MAMM SCREEN 3D AZIZA CADon 07-12-2021 MG MAMM SCREEN 3D AZIZA CAD Patient: MARTI NOLAN Exam Date: 07/12/2021 : 1960 Gender:F Ordering : DR CHUCOH BELL . Admission #: [id number] Family : Order #: [id number] CLICK HERE TO VIEW EXAM RADIOLOGY REPORT [...] lymphoma cancer at age 59. LOCATION: [facility] BREAST COMPOSITION: Extremely dense, which lowers [...] Henley M.D. on 07/12/2021 at 13:56 Normal [facility] XR DEXA BONE DENSITYon 07-12 XR [...] by: JOVANNI HENLEY Date: 2021-07-12 10:41 Normal [facility] PAP ACOG PANEL 2: 30 to 65on 06-01-2021 . . Normal [facility] Comment on above: Result Comment: Perf ormed at: WB Performed By: #### [id number] #### [facility] [address] [place] [address] Dr. Becky Sears Age Gdln ACOG Testing 30-65 Normal [facility] Comment on above: Performed By: #### [id number] #### [facility] [address] [address] [address] Becky Sears DIAGNOSIS: Comment Normal [facility] Comment on above: Result Comment: NEGA TIVE FOR INTRAEPITHELIAL LESION OR MALIGNANCY. CELLULAR CHANGES ASSOCIATED WITH ATROPHY ARE PRESENT. Performed at: WB Performed By: #### [id number] #### [facility] [address] [address] [address] Becky Sears HPV Aptima Negative Normal Negative [facility] Comment on above: Result Comment: This nucleic acid amplification test detects fourteen high-risk HPV types (16,18,31,33,35,39,45,51,52,56,58,59,66,68) without differentiation. Performed at: =G Performed By: #### [id number] #### [facility] [address] [address] [address] Becky Sears Methodology: Comment Normal [facility] Comment on above: Result Comment: This liquid based ThinPrep(R) pap test was screened with the use of an image guided system. Performed at: WB Performed By: #### [id number] #### [facility] [address] [place] [address] Dr. Becky Sears Note: Comment Normal [facility] Comment on above: Result Comment: The Pap smear is a screening test designed to aid in the detection of premalignant and malignant conditions of the uterine cervix. It is not a diagnostic procedure and should not be used as the sole means of detecting cervical cancer. Both false-positive and false-negative reports do occur. . Performed at: WB Performed By: #### [id number] #### [facility] [address] [place] [address] Dr. Becky Sears Performed by: Comment Normal [facility] Comment on above: Result Comment: Becca Reina, Electrician Maintenance (ASCP) Performed at: WB Performed By: #### [id number] #### [facility] [address] [place] [address] Dr. Becky Sears Specimen adequacy: Comment Normal [facility] Comment on above: Result Comment: Sati sfactory for evaluation. Endocervical and/or squamous metaplastic cells (endocervical component) are present. Performed at: WB Performed By: #### [id number] #### [facility] [address] [place] [address] Dr. Becky Sears GLYCOHEMOGLOBIN A1Con 2020 ADA RECOMMENDATION ADA THERAPEUTIC TARG ET 6.0 - 7.0 ACTION SUGGESTED > 7.0 [facility] Comment on above: Performed By: #### A 1C #### [facility] [address] [place] [address] Albertina Makenna Glucose [Mass/Vol] 105 mg/dL Normal [facility] Comment on above: Performed By: #### A 1C #### [facility] [address] [place] [address] Albertina Makenna HbA1c (Bld) [Mass fraction] 5.3 % Normal <=6.0 [facility] Comment on above: Performed By: #### A 1C #### [facility] [address] [place] [address] Albertina Makenna LIPID PROFILEon 02-06-2021 CHOL-HDL RATIO NORM SEE BELOW Normal [facility] Comment on above: Result Comment: 3.3 - 4.4 LOW RISK 4.4 - 7.1 AVERAGE RISK 7.1 - 11.0 MODERATE RISK >11.0 HIGH RISK Performed By: #### L IPID #### [facility] [address], [place] [address] Albertina Makenna Cholesterol [Mass/Vol] 197 mg/dL Normal <=200 [facility] Comment on above: Performed By: #### L IPID #### [facility] [address], [place] [address] Albertina Makenna Cholesterol in HDL [Mass/Vol] 63 mg/dL Normal [facility] Comment on above: Performed By: #### L IPID #### [facility] [address] [place] [address] Albertina Makenna Cholesterol in LDL [Mass/Vol] 118.4 mg/dL Normal [facility] Comment on above: Performed By: #### L IPID #### [facility] [address] [place] [address] Albertina Makenna Cholesterol.total/Cho lesterol in HDL [Mass ratio] 3.1 {ratio} Normal [facility] Comment on above: Performed By: #### L IPID #### [facility] [address] [place] [address] Albertina Makenna HDL NORMAL > or = 60 mg/dl - LO W CARDIOVASCULAR RISK <40 mg/dl - HIGH CARDIOVASCULAR RISK Normal [facility] Comment on above: Performed By: #### L IPID #### [facility] [address] [place], [place] [address] Albertina Makenna LDL CALC NORMAL SEE BELOW Normal [facility] Comment on above: Result Comment: <100 mg/dl OPTIMAL 100 - 129 mg/dl NEAR OR ABOVE OPTIMAL 130 - 159 mg/dl BORDERLINE HIGH 160 - 189 mg/dl HIGH >190 mg/dl VERY HIGH Performed By: #### L IPID #### [facility] [address] [place] [address] Albertina Makenna Triglyceride [Mass/Vol] 78 mg/dL Normal <=150 [facility] Comment on above: Performed By: #### L IPID #### [facility] [address], [place] [address] Albertina Mensah VLDL CALC 15.6 mg/dL Normal [facility] Comment on above: Performed By: #### L IPID #### [facility] [address], [place] [address] Albertina Mensah Vital Signs Date Time Vital Sign Value Performing Clinician Facility 06-12-2024 10:35-0400 Body height 167.64 cm [facility] 06-12-2024 10:35-0400 Body mass index (BMI) [Ratio] 24.2 kg/m2 [facility] 06-12-2024 10:35-0400 Body weight 68.03 kg [facility] 06-12-2024 10:35-0400 Diastolic blood pressure 66 mm[Hg] [facility] 06-12-2024 10:35-0400 Heart rate 65 /min [facility] 06-12-2024 10:35-0400 Systolic blood pressure 108 mm[Hg] [facility] 06-26-2023 13:53-0500 Blood Pressure Location [employer] [facility] 06-26-2023 13:53-0500 Diastolic blood pressure 60 mm[Hg] Brice [employer] [facility] 06-26-2023 13:53-0500 Heart rate 70 /min Brice [employer] [facility] 06-26-2023 13:53-0500 Respiratory rate 16 /min Brice NILL [facility] 06-26-2023 13:53-0500 Systolic blood pressure 112 mm[Hg] [employer] [facility] 06-11-2023 10:00-0400 Body height 167.64 cm Sherry Ba Other [facility] Other 06-11-2023 10:00-0400 Body mass index (BMI) [Ratio] 24.05 kg/m2 Sherry Ba Other [facility] Other 06-11-2023 10:00-0400 Body weight 67.59 kg Sherry Ba Other [facility] Other 06-11-2023 10:00-0400 Diastolic blood pressure 63 mm[Hg] Sherry Ba Other [facility] Other 06-11-2023 10:00-0400 Systolic blood pressure 97 mm[Hg] Sherry Ba Other [facility] Other Encounters Encounter Date Encounter Type Care Provider Facility Start: 06-12-2024 Patient encounter status [facility] Start: 06-12-2024 End: 06-12-2024 ambulatory [facility] Work Phone: Start: 06-12-2024 End: 06-12-2024 Encounter for general adult medical examination without abnormal findings [facility] Start: 06-12-2024 End: 06-12-2024 Patient encounter procedure [facility] Physician [facility] Work Phone: Start: 06-11-2024 Non-patient / Non-visit [facility] Physician [facility] Work Phone: Start: 07-17-2023 End: 07-18-2023 ambulatory Brice R NILL Facility:CD:[id number] Start: 06-26-2023 End: 06-27-2023 ambulatory Brice R NILL Facility:[facility] Start: 06-26-2023 End: 06-26-2023 Patient encounter procedure Brice R NILL [facility] Start: 06-24-2023 End: 06-24-2023 ambulatory Sherry Ba Other [facility] Other Start: 06-24-2023 Telephone encounter Sherry Ba [facility] Start: 06-21-2023 ambulatory Brice NILL Facility:[facility] Start: 06-13-2023 Encounter for genera l adult medical examination without abnormal findings Sherry Ba [facility] Start: 06-13-2023 Telephone encounter Sherry Ba [facility] Start: 06-13-2023 End: 06-13-2023 ambulatory Sherry Ba Other [facility] Other Start: 06-11-2023 End: 06-11-2023 ambulatory Sherry Ba Other [facility] Other Start: 06-11-2023 Encounter for genera l adult medical examination without abnormal findings Sherry Ba [facility] Start: 06-11-2023 Periodic preventive med est patient 40-64yrs Sherry Ba [facility] Start: 12-25-[address] SHERRY BA [facility] ity:[facility] Start: 07-21-2021 Encounter for gynecological examination (general) (routine) without abnormal findings DR CHUCHO BELL [facility] Start: 07-12-2021 End: 07-13-[address] CHUCHO BELL Facility:[facility] Start: 07-12-2021 End: 07-13-2021 Encounter for gynecological examination (general) (routine) without abnormal findings DR CHUCHO BELL Facility:[facility] Start: 05-30-2021 End: 05-30-[address] CHUCHO BELL Facility:[facility] Start: 02-06-2021 End: 02-07-[address] SHERRY BA Facility: Start: 10-15-2017 End: 10-16-2017 Ambulatory DEFAULT PHYSICIAN Facility:[facility] Start: 09-30-2017 End: 10-01-2017 Ambulatory DEFAULT PHYSICIAN Facility:[facility] Procedures Date Procedure Procedure Detail Performing Clinician Colonoscopy Brice ALCARAZ Repair of right inguinal hernia Brice ALCARAZ Plan of Treatment Date Care Activity Detail Author Comprehensive metabo lic 2000 panel - Serum or Plasma [facility] enter MG Breast - bilateral Screening [facility] Immunizations Immunization Date Immunization Notes Care Provider Fa cility 05-04-2022 diphtheria, tetanus toxoids and acellular pertussis vaccine, unspecified formulation Sherry Ba Other [facility] NEGATED: Highlighted row has not occurred!06-26-2023 influenza virus vaccine, unspecified formulation Brice ALCARAZ [facility] Payers Date Payer Category Payer Unknown [id number] 2.16.84 [id number] 1960 Unknown [id number] 2.16.84 [id number] 1960 Unknown [id number] 2.16.84 [id number] 1960 Unknown [id number] 2.16.8 [id number] 1960 Unknown [id number] 2.16.8 [id number] 1960 Unknown [id number] 2.16.8 [id number] 1960 Unknown [id number] 2.16.8 [id number] 1960 Private Health Insurance [id number] 1960 Self-pay [id number] Private Health Insurance [id number] Unknown Unknown [id number] 2.16.84 [id number] Social History Date Type Detail Facility Unknown if ever smoked [facility] Other Sex Assigned At [facility] Start: 06-26-2023 End: 06-12-2024 Tobacco smoking status Never smoked tobacco (finding) [facility] Tobacco smoking status Never Gener al [facility] Start: 1960 Sex Assigned At Female F [facility] Functional Status Date Assessment Result Facility 06-26-2023 Functional Status N/A General [facility] Clinical Note 06-26-2023 Note Date & Type [...] vaccine, inactivated - Not Given Patient Refuses [facility] Comment on above: Result Comment: Elec tronically Signed By: KIERAN LIU, Brice Norris\Date and Time Signed: 06/26/23 14:20 EST Evaluation note 06-13-2023 Note Date & Type Note Facility 06-13-2023 Evaluation note Encounter Date Diagnosis Assessment Notes May, Wellness examination (ICD-10 - Z00.00) [facility] Other Evaluation note 06-11-2023 Note Date & [...] mammogram for breast cancer (ICD-10 - Z12.31) [facility] Other Evaluation + Plan note Note Date & Type Note Facility Evaluation + Plan note No data available for this section General Surgery [employer] Evaluation note Note Date & Type Note Facility Evaluation note No Information [employer] Other Evaluation note Note Date & Type Note Facility Evaluation note Diagnosis Onset Date Screening mammogram for breast cancer acute Wellness examination [facility] Work Phone: History general Narrative - Reported Note Date & Type Note Facility History general Narrative - Reported Type Medical History Osteopenia of right thigh Medical History Osteopenia of left thigh Medical History Fatigue Medical History Menopause Surgical History Inguinal Hernia Repair Hospitalization History SEE SURGICAL HX [facility] Other Hospital Discharge instructions Note Date & Type Note Facility Hospital Discharge instructions No data available for this section General Surgery [employer] Progress note Note Date & Type Note Facility Progress note No data available for this section General Surgery [employer] Summary Purpose Family History Relationship Condition Age at Onset Recorded Date/T cassie father Heart disease Unknown Unknown mother Unknown Diabetes mellitus Unknown Advance Directives Advance Directive Response Recorded Date/ Time Advance Directives No June 12, 2024 10:29am Reason for Referral Reason *FU 06/18 screenin g colonoscopy Diagnosis 1 Screening for colon cancer (Z12.11) Referral Organization [facility] linadrian Referring Provider First Name Sherry Referring Provider Last Name Silverio Referring Provider Specialty Family [facility] cine Referred Organization [facility] Referred Provider DorothysaviBrice Referred Address [address] [place], [place],[address] Referred Provider Specialty General Surg kp Referral Priority Routine General Notes Valorie Sullivan 03:34:07 PM >received today, note locked, referral faxed Chief Complaint and Reason for Visit Chief Complaint CC Adult Risk Strati fication wellness Reason for Visit Screening mammogram for breast cancer Wellness examination Additional Source Comments INFORMATION SOURCE (unrecogn ized section and content) DATE CREATED AUTHOR 02/07/2018 [facility] DATE CREATED AUTHOR AUTHOR'S ORGANIZ ATION 01/04/2022 [facility] DATE CREATED AUTHOR AUTHOR'S ORGANIZ ATION 08/02/2023 [facility] REASON FOR VISIT (unrecogniz ed section and content) [employer] Patient Care team informatio n (unrecognized section and content) Team Status: Active Member Role Status Dates Sherry Ba MD Primary Care Provider Active Team Status: Active Member Role Status Dates Sherry Ba MD Primary Care Provide r, Attending Provider Active Start: June 11, 2024 Team Status: Inactive Member Role Status Dates Sherry Ba MD Primary Care Provide r, Attending Provider Active Start: June 12, 2024 End: June 12, 2024 Goals (unrecognized section and content) Goals may be documented in a n alternate section FOR RECORDS PERTAINING TO PATIENTS WHO ARE [...] BE BASED ON THE PRIMARY CLINICAL RECORDS. [employer] provides no warranty or guarantee of the accuracy or completeness of information in this document.
[2024-06-16 08:49] LABS: Basophils Absolute Auto 0.1 10^3/uL (0.0-0.1); Basophils Percent Auto 0.9 % (0.2-2.0); Eosinophils Absolute Auto 0.3 10^3/uL (0.0-0.7); Hematocrit 38.4 % (36.0-48.0); Hemoglobin 12.6 g/dL (12.0-16.0); Immature Granulocytes Abs Auto 0.02 10^3/uL (0.00-0.03); Immature Granulocytes Pct Auto 0.4 % (0.0-0.5); Lymphocytes Absolute Auto 2.3 10^3/uL (1.2-3.8); Lymphocytes Percent Auto 41.5 % (20.5-60.0); Mean Corpuscular HGB Conc 32.8 g/dL (29.9-35.2); Mean Corpuscular Hemoglobin 29.8 pg (26.7-34.0); Mean Corpuscular Volume 90.8 fL (81.0-99.0); Mean Platelet Volume 10.3 fL (9.5-13.5); Monocytes Absolute Auto 0.3 10^3/uL (0.3-0.8); Neutrophils Absolute Auto 2.6 10^3/uL (1.4-6.5); Neutrophils Percent Auto 47.2 % (43.0-75.0); Platelet Count 255 10^3/uL (150-450); Red Blood Count 4.23 10^6/uL (4.20-5.40); Red Cell Distribution Width 12.4 % (11.0-15.0); White Blood Count 5.6 10^3/uL (4.0-11.0)
[2024-06-16 09:28] LABS: Alanine Aminotransferase 22 U/L (14-59); Albumin Level 3.7 g/dL (3.4-5.0); Alkaline Phosphatase 80 U/L (46-116); Anion Gap 14.8; Aspartate Amino Transferase 16 U/L (15-37); BUN Creatinine Ratio 22.2; Bilirubin Total 0.4 mg/dL (0.2-1.0); Calcium 9.4 mg/dL (8.5-10.1); Carbon Dioxide 27.2 mmol/L (21.0-32.0); Chloride 104 mmol/L (98-107); Estimated GFR (African America >60 (>=60 mL/min/1.73m^2); Estimated GFR (Non-African Ame >60 (>=60 mL/min/1.73m^2); Glucose 91 mg/dL (74-106); Sodium 142 mmol/L (136-145); Total Protein 7.2 g/dL (6.4-8.2)
[2024-06-16 09:29] LABS: Albumin Globulin Ratio 1.1; Chol HDL Ratio 3.8; Cholesterol 202 mg/dL (<=200); Globulin 3.5 g/dL; HDL Cholesterol 53 mg/dL (40-60); Thyroid Stimulating Hormone 4.412 uIU/mL (0.358-3.740); Triglycerides 84 mg/dL (<=150); VLDL CHOLESTEROL 16.8 mg/dL
== END 2024-06-16 08:33 | disposition home or self-care (01) ==
LOC: LAB 08:34
PROVIDERS: PCP Family Medicine; Visit Provider Family Medicine
DX: Z00.00 Encounter for general adult medical examination without abnormal findings (principal)
CPT/HCPCS: 36415; 80053; 80061; 84443; 85025